=== PATIENT | male | born 1960 | race Caucasian/White ===

== ENCOUNTER 2017-05-20 16:01 | Emergency (ER) | payer OTHER ==
[2017-05-20 16:24] VITALS: BP 132/77; PULSE 80; RESP 18; TEMP 98.4; O2SAT 95
--- NOTE | 2017-05-20 17:30 | EDPHY ---
H & P Time Seen by Provider: 05/20/17 16:09 HPI/ROS: 56-year-old male presents complaining left small finger laceration sustained while preparing Thanksgiving dinner. 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 Review of systems As per HPI General no fever no chills no weakness HEENT no eye pain no eye discharge. No eye redness, no sore throat Respiratory no cough, no shortness of breath Cardiac no chest pain, no peripheral edema GI no abdominal pain, no diarrhea, no constipation, no nausea, no vomiting no flank pain, no hematuria, no dysuria Musculoskeletal no myalgias, no joint pain Heme no easy bruising, no easy bleeding Endo no polyuria, no polydipsia Skin no rashes, no pruritus Neuro no syncope, no dizziness, no headaches Psych is no suicidal ideation, no homicidal ideation Past Medical/Surgical History: Noncontributory Social History: Denies alcohol or drug use Smoking Status: Never smoked Physical Exam: 56-year-old male Alert and oriented in no acute distress nontoxic appearance, afebrile Atraumatic normocephalic Neck no JVD Lungs clear to auscultation, no respiratory distress Heart regular rate and rhythm Extremities no cyanosis clubbing edema Left hand-left little finger 2.75 cm L-shaped laceration over dorsum of left little finger, full range of motion, good capillary refill, sensation intact Constitutional: Initial Vital Signs Temperature (C) 36.9 C 05/20/17 16:18 Heart Rate 80 05/20/17 16:18 Respiratory Rate 18 05/20/17 16:18 Blood Pressure 132/77 H 05/20/17 16:18 O2 Sat (%) 95 05/20/17 16:18 O2 Delivery Mode Room Air Allergies/Adverse Reactions: No Known Allergies Allergy (Unverified 05/20/17 16:17) Home Medications: Medication Instructions Recorded NK [No Known Home Meds] 05/20/17 Medical Decision Making Procedures: Procedure note-laceration Digital block with 1% lidocaine without epinephrine combined with bupivacaine 0.25%, also without epinephrine The wound was irrigated with copious amounts of saline. 10 simple interrupted sutures were placed. 4-0 Ethilon was used. Patient tolerated procedure well. ED Course/Re-evaluation: Patient seen and evaluated for left little finger laceration Impression Left little finger laceration Plan Sutured repair Tetanus up-to-date No antibiotics indicated Departure - Departure Disposition: Home, Routine, Self-Care Clinical Impression: Finger laceration Condition: Good Instructions: Care For Your Stitches (ED), Laceration (ED) Additional Instructions: Return in 10-12 days for suture removal. Referrals: JOSSE FIGUEROA [Primary Care Provider] - As per Instructions
== END 2017-05-20 17:45 | disposition home or self-care (01) ==
LOC: CED 16:01
PROC: 0HQGXZZ Repair Left Hand Skin, External Approach (ICD-10-PCS; principal; 2017-05-20)
DX: S61.217A Laceration without foreign body of left little finger without damage to nail, initial encounter (principal); X58.XXXA Exposure to other specified factors, initial encounter